=== PATIENT | female | born 1980 | race Caucasian/White ===

== ENCOUNTER → 2017-02-16 | Outpatient (CLI) | payer MEDICAID, BC | END | disposition home or self-care (01) | LOC: LABWHC1 08:50 | PROVIDERS: ATTEND Surgery | DX: E04.2 Nontoxic multinodular goiter (principal) | CPT/HCPCS: 36415; 84436; 84443; 84480 ==

== ENCOUNTER → 2017-10-13 | Outpatient (CLI) | payer MEDICAID | END | disposition home or self-care (01) | LOC: LABMAIN 10:34 | PROVIDERS: ATTEND Internal Medicine Geriatric Medicine | DX: J02.9 Acute pharyngitis, unspecified (principal) | CPT/HCPCS: 87081; 87430 ==

== ENCOUNTER → 2017-11-17 | Outpatient (CLI) | payer MEDICAID | END | disposition home or self-care (01) | LOC: LABWHC1 08:43 | PROVIDERS: ATTEND Surgery | DX: E04.2 Nontoxic multinodular goiter (principal) | CPT/HCPCS: 36415; 84436; 84443; 84480 ==

== ENCOUNTER 2018-04-02 14:50 | Emergency (ER) | payer MEDICAID ==
[2018-04-02] MEDS ORDERED: SODIUM CHLORIDE 0.9% 500 ML IV ONE (14:58)
[2018-04-02] MEDS ORDERED: FAMOTIDINE 20 MG/2 ML VIAL IV STA (14:58)
[2018-04-02] MEDS ORDERED: DEXAMETHASONE SOD PHOSPHATE 10 MG/ML 1 ML VIAL IV STA (14:58)
--- NOTE | 2018-04-02 15:02 | ED ---
General Adult HPI - General Stated complaint: Bee sting/reaction Time Seen by Provider: 04/02/18 14:54 Source: patient, RN notes reviewed - History of Present Illness Initial comments: 38-year-old female presents after being stung by a bee. Patient was stung approximately 30 minutes prior to arrival. She has no known ALLERGIES including no known ALLERGIES to bee stings. She has had some nausea and indigestion. She did administer EpiPen about 20 minutes prior to my evaluation. She also gave herself 50 mg of Benadryl. She complains of nausea, generalized rash. No tongue or lip swelling. No difficulty breathing. Patient is somewhat tremulous which is likely attributable to epinephrine injection. - Related Data Previous Rx's Medication Instructions Recorded EPINEPHrine [Epipen 2-Keenan] 0.3 mg IM ONCE PRN #1 unit 04/02/18 Famotidine [Pepcid] 20 mg PO DAILY #7 tablet 04/02/18 diphenhydrAMINE [Benadryl] 25 mg PO TID PRN #21 capsule 04/02/18 predniSONE 50 mg PO DAILY #5 tab 04/02/18 Allergies Allergy/AdvReac Type Severity Reaction Status Date / Time Sulfa (Sulfonamide Allergy Rash/Hives Verified 04/02/18 15:17 Antibiotics) venom-honey bee Allergy Anaphylaxis Verified 04/02/18 15:17 venom-wasp Allergy Anaphylaxis Verified 04/02/18 15:17 venom-wasp protein Allergy Anaphylaxis Verified 04/02/18 15:17 Review of Systems ROS Statement: Those systems with pertinent positive or pertinent negative responses have been documented in the HPI. ROS Other: All systems not noted in ROS Statement are negative. Past Medical History Past Medical History: Thyroid Disorder History of Any Multi-Drug Resistant Organisms: None Reported Past Anesthesia/Blood Transfusion Reactions: No Reported Reaction Past Psychological History: No Psychological Hx Reported Smoking Status: Never smoker Past Alcohol Use History: None Reported Past Drug Use History: None Reported - Past Family History Father Family Medical History: Hypertension General Exam General appearance: alert, in no apparent distress Head exam: Present: atraumatic, normocephalic Eye exam: Present: normal appearance, PERRL, EOMI ENT exam: Present: normal exam Neck exam: Present: normal inspection. Absent: tenderness, meningismus Respiratory exam: Present: normal lung sounds bilaterally. Absent: respiratory distress, wheezes, rales Cardiovascular Exam: Present: regular rate, normal rhythm GI/Abdominal exam: Present: soft. Absent: distended, tenderness, guarding Extremities exam: Present: normal inspection, normal capillary refill. Absent: pedal edema Neurological exam: Present: alert, oriented X3, CN II-XII intact. Absent: motor sensory deficit Psychiatric exam: Present: anxious Skin exam: Present: warm, rash, erythema, urticaria Course Vital Signs 04/02/18 14:56 Pulse Rate 92 Respiratory 22 Rate Blood Pressure 129/79 O2 Sat by Pulse 100 Oximetry EKG Findings - EKG Comments: EKG Findings:: EKG: Normal sinus rhythm, no ST segment elevation or depression, rate of 68, [place] interval 150, QRS duration 82, QTC [address] segment elevation or depression Medical Decision Making - Medical Decision Making 38-year-old female with anaphylactic reaction to bee sting. Patient given epinephrine prior to arrival. Lungs clear, heart is regular rate and rhythm. There is diffuse urticaria throughout the torso and upper extremities. Patient took Benadryl prior to arrival she is given Pepcid and Decadron in the emergency department. Patient observed for 2 hours with no change in respiratory status. Symptoms to improve throughout her stay in the emergency department. She will be given a steroid prescription as well as EpiPen for future use. She is also instructed to take Benadryl over the next several days. Disposition Clinical Impression: Anaphylaxis, Allergic reaction to insect sting Disposition: HOME SELF-CARE Condition: Good Instructions: Insect Bite or Sting (ED), Anaphylaxis (ED) Prescriptions: diphenhydrAMINE [Benadryl] 25 mg PO TID PRN #21 capsule PRN Reason: Allergic Reaction EPINEPHrine [Epipen 2-Keenan] 0.3 mg IM ONCE PRN #1 unit PRN Reason: Allergic Reaction Famotidine [Pepcid] 20 mg PO DAILY #7 tablet predniSONE 50 mg PO DAILY #5 tab Is patient prescribed a controlled substance at d/c from ED?: No Referrals: Augustin Mccauley MD [Primary Care Provider] - 1-2 days Time of Disposition: 17:00
[2018-04-02 16:21] VITALS: PULSE 68
[2018-04-02 18:36] VITALS: BP 112/71; RESP 18; TEMP 97.5
== END 2018-04-02 16:45 | disposition home or self-care (01) ==
LOC: EC 14:50
DX: T63.441A Toxic effect of venom of bees, accidental (unintentional), initial encounter (principal); T78.2XXA Anaphylactic shock, unspecified, initial encounter; L50.0 Allergic urticaria; Z88.2 Allergy status to sulfonamides; Z91.030 Bee allergy status; Z91.038 Other insect allergy status
CPT/HCPCS: 93005; 99283; 96374; 96375; J1100

== ENCOUNTER → 2018-06-04 | Outpatient (CLI) | payer MEDICAID | END | disposition home or self-care (01) | LOC: LABWHC1 12:08 | PROVIDERS: ATTEND Surgery | DX: E04.2 Nontoxic multinodular goiter (principal) | CPT/HCPCS: 36415; 84436; 84443; 84480 ==

== ENCOUNTER → 2019-09-02 | Outpatient (CLI) | payer MEDICAID | END | disposition home or self-care (01) | LOC: LABWHC1 08:43 | PROVIDERS: ATTEND Surgery | DX: E04.2 Nontoxic multinodular goiter (principal) | CPT/HCPCS: 36415; 84436; 84443; 84480 ==

== ENCOUNTER → 2020-06-19 | Outpatient (CLI) | payer MEDICAID ==
--- NOTE | 2020-06-25 11:18 | MM ---
Reason for exam: screening (asymptomatic). Last mammogram was performed 4 years and 8 months ago. Physical Findings: A clinical breast exam by your physician is recommended on an annual basis and results should be correlated with mammographic findings. MG 3D Screening Mammo W/Cad Bilateral CC and MLO view(s) were taken. Prior study comparison: October 26, 2015, bilateral MG screening mammo w CAD. The breast tissue is extremely dense which could obscure a lesion on mammography. Finding: There is a 14mm and 12 mm circumscribed round mass located 2.5cm and 5.9cm from the nipple in the upper outer quadrant, posterior middle position of the right breast. ASSESSMENT: Incomplete: need additional imaging evaluation, BI-RAD 0 RECOMMENDATION: Ultrasound of the right breast. [facility] will attempt to contact patient to return for ultrasound.
== END | disposition home or self-care (01) ==
LOC: RADMAMWWP 13:16
PROVIDERS: ATTEND Obstetrics & Gynecology
DX: Z12.31 Encounter for screening mammogram for malignant neoplasm of breast (principal)
CPT/HCPCS: 77063; 77067

== ENCOUNTER → 2020-07-02 | Outpatient (CLI) | payer MEDICAID ==
--- NOTE | 2020-07-03 07:57 | USB ---
Reason for exam: additional evaluation requested from abnormal screening. Physical Findings: Nurse Summary: bilateral nodularity, all soft, nodular, movable (nurse ts). US Breast Workup Limited RT Right limited breast ultrasound including focal area of concern, retroareolar and axilla demonstrates a 0.4 x 0.6 x 0.3cm oval lesion too small to characterize at 12 o'clock, a 1.3 x 1.0 x 0.5cm oval, cystic lesion at 9 o'clock thin walled cysts, a 1.2 x 1.2 x 0.6cm oval, cystic lesion at 10 o'clock thin walled cysts, a deeper 0.8 x 0.4 x 0.4cm oval, cystic lesion at 10 o'clock and duct ectasia at the posterior nipple. Overall fibrocystic change. These results were verbally communicated with the patient and result sheet given to the patient on 07/02/20. ASSESSMENT: Benign, BI-RAD 2 RECOMMENDATION: Return to routine screening mammogram schedule for both breasts.
== END | disposition home or self-care (01) ==
LOC: RADUSWWP 14:52
PROVIDERS: ATTEND Obstetrics & Gynecology
DX: R92.8 Other abnormal and inconclusive findings on diagnostic imaging of breast (principal)

== ENCOUNTER → 2021-01-30 | Outpatient (CLI) | payer MEDICAID | END | disposition home or self-care (01) | LOC: LABWHC1 11:41 | PROVIDERS: ATTEND Surgery | DX: E04.2 Nontoxic multinodular goiter (principal) | CPT/HCPCS: 36415; 84436; 84443; 84480 ==

== ENCOUNTER → 2021-07-17 | Outpatient (CLI) | payer MEDICAID ==
--- NOTE | 2021-07-18 11:52 | MM ---
Reason for exam: screening (asymptomatic). Last mammogram was performed 1 year and 1 month ago. Physical Findings: A clinical breast exam by your physician is recommended on an annual basis and results should be correlated with mammographic findings. MG 3D Screening Mammo W/Cad Bilateral CC and MLO view(s) were taken. Prior study comparison: June 19, 2020, bilateral MG 3d screening mammo w/cad. October 26, 2015, bilateral MG screening mammo w CAD. The breast tissue is heterogeneously dense. This may lower the sensitivity of mammography. No significant changes when compared with prior studies. ASSESSMENT: Benign, BI-RAD 2 RECOMMENDATION: Routine screening mammogram of both breasts in 1 year.
== END ==
LOC: RADMAMWWP 10:14
PROVIDERS: ATTEND Obstetrics & Gynecology
DX: Z12.31 Encounter for screening mammogram for malignant neoplasm of breast (principal)
CPT/HCPCS: 77063; 77067

== ENCOUNTER → 2023-09-25 | Outpatient (CLI) | payer MEDICAID | END | disposition home or self-care (01) | LOC: LABWHC1 13:20 | PROVIDERS: ATTEND Surgery | DX: E04.2 Nontoxic multinodular goiter (principal) | CPT/HCPCS: 36415; 84436; 84443; 84480 ==

== ENCOUNTER → 2023-10-21 | Outpatient (CLI) | payer MEDICAID ==
--- NOTE | 2023-10-23 19:12 | MM ---
Reason for Exam: Screening (asymptomatic). Last screening mammogram was performed 12 month(s) ago. Patient History: Menarche at age 11. First Full-Term at age 29. Patient has history of breast feeding. Last menstrual period: 10/20/2023 Risk Values: Gini 5 year model risk: 0.9%. NCI Lifetime model risk: 11.8%. Prior Study Comparison: 06/19/2020 Bilateral Screening Mammogram, [facility]. 07/17/2021 Bilateral Screening Mammogram, [facility]. 10/15/2022 Bilateral MG 3D screening mammo w/cad, [facility]. Tissue Density: The breast tissue is heterogeneously dense. This may lower the sensitivity of mammography. Findings: Analyzed By CAD. Multiple circumscribed masses are redemonstrated on the right. There is no suspicious group of microcalcifications or new suspicious mass in either breast. Overall Assessment: Benign, BI-RAD 2 Management: Screening Mammogram of both breasts in 1 year. . Patient should continue monthly self-breast exams. A clinical breast exam by your physician is recommended on an annual basis. This exam should not preclude additional follow-up of suspicious palpable abnormalities. Note on Gini scores and lifetime risk: 1. A Gini score greater than 3% is considered moderate risk. If this is the case, consider specialist referral to assess eligibility for a risk reducing agent. 2. If overall lifetime risk for the development of breast cancer is 20% or higher, the patient may qualify for future screening with alternating mammogram and breast MRI. Electronically signed and approved by: Nav Celaya M.D. Radiologist
== END | disposition home or self-care (01) ==
LOC: RADMAMWWP 11:19
PROVIDERS: ATTEND Obstetrics & Gynecology
DX: Z12.31 Encounter for screening mammogram for malignant neoplasm of breast (principal)
CPT/HCPCS: 77063; 77067

== ENCOUNTER → 2024-12-15 | Outpatient (CLI) | payer MEDICAID ==
--- NOTE | 2024-12-20 12:24 | MM ---
Reason for Exam: Screening (asymptomatic). Last mammogram was performed 1 year(s) and 2 month(s) ago. Patient History: Menarche at age 11. First Full-Term at age 29. Patient has history of breast feeding. Risk Values: Gini 5 year model risk: 0.9%. NCI Lifetime model risk: 11.7%. Prior Study Comparison: 07/17/2021 Bilateral Screening Mammogram, [facility]. 10/15/2022 Bilateral MG 3D screening mammo w/cad, [facility]. 10/21/2023 Bilateral MG 3D screening mammo w/cad, [facility]. Tissue Density: The breasts are heterogeneously dense, which may obscure small masses. Findings: Analyzed By CAD. There is no suspicious group of microcalcifications or new suspicious mass in either breast. Waxing and waning masses right breast felt to be on the basis of waxing and waning cysts. Overall Assessment: Benign, BI-RAD 2 Management: Screening Mammogram of both breasts in 1 year. . Patient should continue monthly self-breast exams. A clinical breast exam by your physician is recommended on an annual basis. This exam should not preclude additional follow-up of suspicious palpable abnormalities. Note on Gini scores and lifetime risk: 1. A Gini score greater than 3% is considered moderate risk. If this is the case, consider specialist referral to assess eligibility for a risk reducing agent. 2. If overall lifetime risk for the development of breast cancer is 20% or higher, the patient may qualify for future screening with alternating mammogram and breast MRI. [facility], , 12/15/2024 2:38 PM. Electronically signed and approved by: Sid Haque M.D. Radiologis
== END | disposition home or self-care (01) ==
LOC: RADMAMWWP 14:07
PROVIDERS: ATTEND Obstetrics & Gynecology
DX: Z12.31 Encounter for screening mammogram for malignant neoplasm of breast (principal); R92.333 Mammographic heterogeneous density, bilateral breasts
CPT/HCPCS: 77063; 77067

== ENCOUNTER → 2025-02-21 | Outpatient (CLI) | payer MEDICAID | END | disposition home or self-care (01) | LOC: LABWHC1 09:46 | PROVIDERS: ATTEND Surgery | DX: E04.2 Nontoxic multinodular goiter (principal) | CPT/HCPCS: 36415; 84436; 84443; 84480 ==